=== PATIENT | female | born 1995 | race Caucasian/White ===

== ENCOUNTER 2019-05-30 17:02 | Observation (INO) ==
[2019-05-30 17:54] LABS: Hematocrit [HCT] 34.8 % (37.0-47.0); Hemoglobin [HGB] 11.6 g/dL (12.0-16.0); MEAN CORPUSCULAR HGB CONC 33.3 g/dL (33-37); MEAN CORPUSCULAR VOLUME 92.3 FL (81-99); MEAN PLATELET VOLUME 11.4 FL (7.4-12.2); RED BLOOD COUNT 3.77 10^6/uL (4.20-5.40)
[2019-05-30 18:02] LABS: BLOOD UREA NITROGEN 7 mg/dL (7-22); BUN/CREATININE RATIO 11.66 (6-20); SERUM ALBUMIN 3.1 g/dL (3.5-4.8); Uric Acid 5.4 mg/dl (2.5-6.2)
[2019-05-30] MEDS ORDERED: LIDOCAINE W/ SODIUM BICARB 0.5 ML SYR SUBD PRN (19:24)
[2019-05-30] MEDS ORDERED: ONDANSETRON 4 MG/2 ML VIAL IVP PRN (19:24)
[2019-05-30] MEDS ORDERED: Ondansetron ODT Tab 4 MG TAB PO PRN (19:24)
[2019-05-30] MEDS ORDERED: CALCIUM CARBONATE 500 MG (TUMS) CHEWABLE TABLET PO PRN (19:24)
[2019-05-30] MEDS: NIFEdipine 10 MG CAPSULE PO SCH ×2 (20:36→23:51)
[2019-05-31] MEDS: NIFEdipine 10 MG CAPSULE PO SCH ×2 (03:47→07:25)
[2019-05-31] MEDS ORDERED: ACETAMINOPHEN 325 MG TABLET PO PRN (06:33)
[2019-05-31 07:10] LABS: Hematocrit [HCT] 36.2 % (37.0-47.0); Hemoglobin [HGB] 12.3 g/dL (12.0-16.0); MEAN CORPUSCULAR VOLUME 90.5 FL (81-99)
[2019-05-31 07:36] LABS: BLOOD UREA NITROGEN 5 mg/dL (7-22); SERUM ALBUMIN 3.1 g/dL (3.5-4.8); Uric Acid 5.1 mg/dl (2.5-6.2)
[2019-05-31] MEDS ORDERED: Prenatal Multivitamin Tab 1 TAB TAB PO SCH (09:00)
[2019-05-31] MEDS ORDERED: Magnesium Sulfate 4gm (Premix) 4 GM/100 ML BAG IV ONE (10:00)
[2019-05-31] MEDS ORDERED: Magnesium Sulfate (Premix) 20 GM/500 ML BAG IV SCH (10:00)
[2019-05-31] MEDS ORDERED: CALCIUM GLUCONATE 100 MG/1 ML - 10 ML IVP PRN (10:00)
[2019-05-31] MEDS ORDERED: LIDOCAINE HCL 2 % 10 ML JELLY URO-JECT TOPICAL PRN (10:02)
[2019-05-31] MEDS ORDERED: Lactated Ringers-OB Dept 1,000 ML PRIMARY IV SCH (10:15)
== END 2019-05-31 12:37 | disposition short-term general hospital (02) ==
LOC: OBIP 17:02 → OBOP 17:02
PROVIDERS: ADMIT Obstetrics & Gynecology; ATTEND Obstetrics & Gynecology